=== PATIENT | male | born 1985 | race African-American/Black ===

== ENCOUNTER 2017-01-14 01:23 | Emergency (ER) | payer MEDICAID ==
[~2017-01-14] VITALS: Ht 188 cm; Wt 120.0 kg
[2017-01-14 06:42] VITALS: BP 131/82
[2017-01-14 07:07] LABS: CARBON DIOXIDE 26 mEq/L (21-32); CHLORIDE 101 mEq/L (98-107); TROPONIN I < 0.02 ng/mL (0.00-0.04)
== END 2017-01-14 07:50 | disposition left against medical advice (07) ==
LOC: ER 02:33
DX: R07.9 Chest pain, unspecified (principal); R05 Cough; F17.200 Nicotine dependence, unspecified, uncomplicated; F12.10 Cannabis abuse, uncomplicated; F15.10 Other stimulant abuse, uncomplicated; F11.10 Opioid abuse, uncomplicated
CPT/HCPCS: 36415; 71010; 80048; 84484; 85379; 93005; 99285; Z7610

== ENCOUNTER 2018-06-11 10:24 | Emergency (ER) | payer MEDICAID ==
[~2018-06-11] VITALS: Ht 182.9 cm; Wt 118.0 kg
[2018-06-11] MEDS ORDERED: SODIUM CHLORIDE 0.9% 1,000 ML IV ONE (11:09)
[2018-06-11] MEDS ORDERED: METHYLPREDNISOLONE SOD SUCC 125 MG/2 ML VIAL IV STA (11:09)
[2018-06-11] MEDS ORDERED: IPRATROPIUM/ALBUTEROL 0.5-3(2.5)MG/3ML NEB HHN ONE (11:15)
[2018-06-11] MEDS ORDERED: AZITHROMYCIN 500 MG TABLET PO ONE (11:15)
[2018-06-11 11:41] LABS: EOSINOPHILS % 0.7 % (0.0-5.0); HEMATOCRIT. 43.4 % (42.0-52.0); HEMOGLOBIN. 14.3 g/dL (14.0-18.0); MEAN CORPUSCULAR HEMOGLOBIN 29.2 pg (28.0-32.0); MEAN CORPUSCULAR VOLUME 88.4 fL (80.0-94.0); MEAN PLATELET VOLUME 8.3 fl (7.4-10.4); MONOCYTES % 8.3 % (2.0-8.0); PLATELET 288 x1000/uL (130-400); RED CELL DISTRIBUTION WIDTH 13.5 % (11.6-14.6)
[2018-06-11 11:48] LABS: CHLORIDE 110 mEq/L (98-107)
[2018-06-11 12:19] LABS: PARTIAL THROMBOPLASTIN TIME < 21.0 sec (23.4-31.0)
[2018-06-11] MEDS ORDERED: ACETAMINOPHEN 325MG TABLET PO ONE (13:30)
[2018-06-11 14:41] VITALS: BP 133/73
== END 2018-06-11 14:46 | disposition home or self-care (01) ==
LOC: ER 14:08
DX: J45.909 Unspecified asthma, uncomplicated (principal); R06.02 Shortness of breath
CPT/HCPCS: 36415; 71045; 80053; 83880; 84484; 85025; 85610; 85730; 87040; 93005; 94640; 96374; 99284; J2930; J7030; J7620

== ENCOUNTER 2018-08-11 02:27 | Emergency (ER) | payer MEDICAID ==
[~2018-08-11] VITALS: Ht 182.9 cm; Wt 124.3 kg
[2018-08-11] MEDS ORDERED: KETOROLAC 60MG/2ML VIAL IM ONE (05:00)
[2018-08-11 05:01] VITALS: BP 125/75
[2018-08-11] MEDS ORDERED: ALBUTEROL (0.083%) 2.5MG/3ML NEB HHN ONE (07:15)
[2018-08-11] MEDS ORDERED: HYDROCODONE/ACETAMINOPHEN 5/325MG TABLET PO ONE (08:15)
== END 2018-08-11 08:34 | disposition home or self-care (01) ==
LOC: ER 02:27
DX: M25.551 Pain in right hip (principal); R09.81 Nasal congestion; R06.2 Wheezing; R09.89 Other specified symptoms and signs involving the circulatory and respiratory systems; F14.10 Cocaine abuse, uncomplicated; F12.10 Cannabis abuse, uncomplicated; I10 Essential (primary) hypertension; Z98.890 Other specified postprocedural states
CPT/HCPCS: 71045; 73502; 94640; 96372; 99284; J1885; J7611; Z7610

== ENCOUNTER 2018-08-25 13:12 | Emergency (ER) | payer MEDICAID | END 2018-08-25 13:57 | disposition left against medical advice (07) | LOC: ER 13:12 | DX: R10.9 Unspecified abdominal pain (principal); Z53.21 Procedure and treatment not carried out due to patient leaving prior to being seen by health care provider ==

== ENCOUNTER 2018-08-29 07:53 | Emergency (ER) | payer MEDICAID ==
[~2018-08-29] VITALS: Ht 182.9 cm; Wt 102.0 kg
[2018-08-29 08:40] VITALS: BP 125/87
== END 2018-08-29 08:58 | disposition home or self-care (01) ==
LOC: ER 08:03
DX: G89.21 Chronic pain due to trauma (principal); R07.81 Pleurodynia; I10 Essential (primary) hypertension; F12.10 Cannabis abuse, uncomplicated; F14.10 Cocaine abuse, uncomplicated; Z87.828 Personal history of other (healed) physical injury and trauma
CPT/HCPCS: 99283

== ENCOUNTER 2018-09-05 21:24 | Emergency (ER) | payer MEDICAID ==
[~2018-09-05] VITALS: Ht 182.9 cm; Wt 91.0 kg
[2018-09-06 04:24] VITALS: BP 135/92
[2018-09-06] MEDS ORDERED: DIAZEPAM 2 MG TABLET PO ONE (05:15)
[2018-09-06 05:31] LABS: BASOPHILS % 0.6 % (0.0-2.0); EOSINOPHILS % 0.6 % (0.0-5.0); HEMATOCRIT. 46.3 % (42.0-52.0); HEMOGLOBIN. 15.3 g/dL (14.0-18.0); LYMPHOCYTES % 37.5 % (20.0-50.0); MEAN CORPUSCULAR HEMOGLOBIN 29.2 pg (28.0-32.0); MEAN CORPUSCULAR VOLUME 88.1 fL (80.0-94.0); NEUTROPHILS % 54.3 % (40.0-76.0); PLATELET 290 x1000/uL (130-400); RED BLOOD CELL COUNT 5.26 mill/uL (4.7-6.1); RED CELL DISTRIBUTION WIDTH 13.9 % (11.6-14.6)
[2018-09-06 05:39] LABS: CHLORIDE 104 mEq/L (98-107)
[2018-09-06 05:44] LABS: ETHANOL BLOOD < 10 mg/dL
[2018-09-06 06:29] LABS: *BARBITURATES SCREEN URINE NEGATIVE (NEGATIVE); *BENZODIAZEPINES SCREEN URINE NEGATIVE (NEGATIVE); *COCAINE SCREEN URINE NEGATIVE (NEGATIVE); METHADONE URINE SCREEN NEGATIVE (NEGATIVE); OPIATES URINE SCREEN NEGATIVE (NEGATIVE)
[2018-09-06 06:31] LABS: *AMPHETAMINES SCREEN URINE PRESUMTIVE POSITIVE (NEGATIVE); CANNABINOID URINE SCREEN NEGATIVE (NEGATIVE); PHENCYCLIDINE URINE SCREEN NEGATIVE (NEGATIVE)
== END 2018-09-06 06:32 | disposition home or self-care (01) ==
LOC: ER 21:24
DX: F41.0 Panic disorder [episodic paroxysmal anxiety] (principal); Z91.14 Patient's other noncompliance with medication regimen; E87.6 Hypokalemia; I10 Essential (primary) hypertension; F20.9 Schizophrenia, unspecified; F14.10 Cocaine abuse, uncomplicated; F12.90 Cannabis use, unspecified, uncomplicated; F17.210 Nicotine dependence, cigarettes, uncomplicated; Z71.6 Tobacco abuse counseling
CPT/HCPCS: 36415; 80053; 80305; 80307; 80320; 80329; 85025; 99284; 99406; Z7610; G0480

== ENCOUNTER 2018-10-03 23:22 | Emergency (ER) | payer MEDICAID ==
[~2018-10-03] VITALS: Ht 182.9 cm; Wt 121.0 kg
[2018-10-04] MEDS ORDERED: ASPIRIN 325MG EC TABLET PO ONE (01:45)
[2018-10-04 02:55] VITALS: BP 138/78
== END 2018-10-04 03:19 | disposition home or self-care (01) ==
LOC: ER 23:22
DX: F14.10 Cocaine abuse, uncomplicated (principal); R07.89 Other chest pain; F41.9 Anxiety disorder, unspecified; F31.9 Bipolar disorder, unspecified; I10 Essential (primary) hypertension; F20.9 Schizophrenia, unspecified; F12.10 Cannabis abuse, uncomplicated; F17.200 Nicotine dependence, unspecified, uncomplicated
CPT/HCPCS: 71045; 93005; 99283

== ENCOUNTER 2018-12-26 00:06 | Emergency (ER) | payer MEDICAID ==
[~2018-12-26] VITALS: Ht 182.9 cm; Wt 122.9 kg
[2018-12-26] MEDS ORDERED: ACETAMINOPHEN 500MG TABLET PO ONE (02:30)
[2018-12-26] MEDS ORDERED: IBUPROFEN 600MG TABLET PO ONE (02:30)
[2018-12-26 02:48] VITALS: BP 139/70
== END 2018-12-26 04:25 | disposition home or self-care (01) ==
LOC: ER 00:06
DX: M25.561 Pain in right knee (principal); Z76.0 Encounter for issue of repeat prescription; F41.9 Anxiety disorder, unspecified; I10 Essential (primary) hypertension; F20.9 Schizophrenia, unspecified; F17.210 Nicotine dependence, cigarettes, uncomplicated; F12.10 Cannabis abuse, uncomplicated; F14.10 Cocaine abuse, uncomplicated
CPT/HCPCS: 99283

== ENCOUNTER 2018-12-31 19:10 | Emergency (ER) | payer MEDICAID ==
[~2018-12-31] VITALS: Ht 188 cm; Wt 122.0 kg
[2018-12-31 20:15] VITALS: BP 122/83
[2018-12-31] MEDS ORDERED: IBUPROFEN 600MG TABLET PO ONE (22:45)
[2018-12-31] MEDS ORDERED: LORAZEPAM 1MG TABLET PO ONE (22:45)
== END 2019-01-01 01:04 | disposition home or self-care (01) ==
LOC: ER 19:26
DX: R51 Headache (principal); F19.939 Other psychoactive substance use, unspecified with withdrawal, unspecified; H53.149 Visual discomfort, unspecified; F41.9 Anxiety disorder, unspecified; F31.9 Bipolar disorder, unspecified; F20.9 Schizophrenia, unspecified; I10 Essential (primary) hypertension; F17.200 Nicotine dependence, unspecified, uncomplicated; Z98.890 Other specified postprocedural states
CPT/HCPCS: 99283

== ENCOUNTER 2019-01-22 17:26 | Emergency (ER) | payer MEDICAID ==
[~2019-01-22] VITALS: Ht 177.8 cm; Wt 93.0 kg
[2019-01-22] MEDS ORDERED: MORPHINE SULFATE 4 MG/ML CPJ (NOT FOR IM USE) IV STA (18:06)
[2019-01-22] MEDS ORDERED: ONDANSETRON HCL 4MG/2ML INJ IV STA (18:06)
[2019-01-22] MEDS ORDERED: SODIUM CHLORIDE 0.9% 1,000 ML IV ONE (18:06)
[2019-01-22] MEDS ORDERED: FAMOTIDINE 20MG/2ML VIAL IV STA (18:06)
[2019-01-22 18:47] LABS: BASOPHILS % 0.4 % (0.0-2.0); EOSINOPHILS % 8.8 % (0.0-5.0); HEMATOCRIT. 44.9 % (42.0-52.0); HEMOGLOBIN. 14.7 g/dL (14.0-18.0); LYMPHOCYTES % 25.4 % (20.0-50.0); MEAN CORPUSCULAR HEMOGLOBIN 29.1 pg (28.0-32.0); MEAN CORPUSCULAR VOLUME 88.7 fL (80.0-94.0); MEAN PLATELET VOLUME 8.5 fl (7.4-10.4); MONOCYTES % 7.3 % (2.0-8.0); NEUTROPHILS % 58.1 % (40.0-76.0); PLATELET 290 x1000/uL (130-400); RED BLOOD CELL COUNT 5.06 mill/uL (4.7-6.1); RED CELL DISTRIBUTION WIDTH 14.6 % (11.6-14.6)
[2019-01-22 18:51] LABS: CHLORIDE 108 mEq/L (98-107)
[2019-01-22 21:20] VITALS: BP 132/75
== END 2019-01-22 23:00 | disposition home or self-care (01) ==
LOC: ER 18:23
DX: K80.50 Calculus of bile duct without cholangitis or cholecystitis without obstruction (principal); R79.89 Other specified abnormal findings of blood chemistry; F31.9 Bipolar disorder, unspecified; I10 Essential (primary) hypertension; F41.9 Anxiety disorder, unspecified; F20.9 Schizophrenia, unspecified
CPT/HCPCS: 36415; 76705; 80053; 83690; 85025; 85610; 96361; 96374; 96375; 99284; J2270; J2405; J3490; J7030

== ENCOUNTER 2019-03-09 16:52 | Emergency (ER) | payer MEDICAID ==
[~2019-03-09] VITALS: Ht 180.3 cm; Wt 140.0 kg
[2019-03-09] MEDS ORDERED: LORAZEPAM 2MG/ML CPJ IV STA (17:23)
[2019-03-09] MEDS ORDERED: SODIUM CHLORIDE 0.9% 1,000 ML IV ONE (17:23)
[2019-03-09 17:39] LABS: BASOPHILS % 0.8 % (0.0-2.0); HEMATOCRIT. 44.3 % (42.0-52.0); HEMOGLOBIN. 14.9 g/dL (14.0-18.0); LYMPHOCYTES % 22.9 % (20.0-50.0); MEAN CORPUSCULAR HEMOGLOBIN 29.3 pg (28.0-32.0); MEAN CORPUSCULAR VOLUME 87.5 fL (80.0-94.0); MEAN PLATELET VOLUME 8.4 fl (7.4-10.4); MONOCYTES % 9.7 % (2.0-8.0); NEUTROPHILS % 60.6 % (40.0-76.0); PLATELET 296 x1000/uL (130-400); RED BLOOD CELL COUNT 5.07 mill/uL (4.7-6.1); RED CELL DISTRIBUTION WIDTH 13.9 % (11.6-14.6)
[2019-03-09 17:48] LABS: CHLORIDE 102 mEq/L (98-107)
[2019-03-09 17:56] LABS: ETHANOL BLOOD < 10 mg/dL
[2019-03-09] MEDS ORDERED: SORBITOL 70% SOLN 30ML PO ONE (19:45)
[2019-03-09] MEDS ORDERED: LORAZEPAM 1MG TABLET PO ONE (20:45)
[2019-03-09 22:37] LABS: CLARITY URINE CLEAR (CLEAR); COLOR URINE YELLOW (YELLOW); KETONES URINE TRACE (NEGATIVE); LEUKOCYTE ESTERASE URINE NEGATIVE (NEGATIVE); NITRITE URINE NEGATIVE (NEGATIVE); OCCULT BLOOD URINE NEGATIVE (NEGATIVE); PH URINE 6.5 (4.5-8.0); PROTEIN URINE 1+ (NEGATIVE); SPECIFIC GRAVITY URINE 1.037 (1.005-1.030)
[2019-03-09] MEDS ORDERED: LORAZEPAM 2MG/ML CPJ IV ONE (22:45)
[2019-03-09] MEDS ORDERED: QUETIAPINE FUMARATE 50MG TABLET PO PRN (22:45)
[2019-03-09 22:47] LABS: *AMPHETAMINES SCREEN URINE PRESUMTIVE POSITIVE (NEGATIVE); *BARBITURATES SCREEN URINE NEGATIVE (NEGATIVE); *BENZODIAZEPINES SCREEN URINE NEGATIVE (NEGATIVE)
[2019-03-09 22:48] LABS: *COCAINE SCREEN URINE NEGATIVE (NEGATIVE); CANNABINOID URINE SCREEN PRESUMTIVE POSITIVE (NEGATIVE); METHADONE URINE SCREEN NEGATIVE (NEGATIVE); OPIATES URINE SCREEN NEGATIVE (NEGATIVE); PHENCYCLIDINE URINE SCREEN NEGATIVE (NEGATIVE)
[2019-03-10 11:30] VITALS: BP 120/60
== END 2019-03-10 13:34 | disposition home or self-care (01) ==
LOC: ER 17:09
DX: R53.1 Weakness (principal); E86.0 Dehydration; K59.00 Constipation, unspecified; R45.851 Suicidal ideations; F17.290 Nicotine dependence, other tobacco product, uncomplicated; F12.10 Cannabis abuse, uncomplicated; F15.10 Other stimulant abuse, uncomplicated; F41.9 Anxiety disorder, unspecified; E11.9 Type 2 diabetes mellitus without complications; F20.9 Schizophrenia, unspecified; Z98.890 Other specified postprocedural states
CPT/HCPCS: 36415; 80053; 80305; 80307; 80320; 80329; 81003; 84443; 85025; 93005; 96374; 99284; 99406; J2060; J7030; Z7610; G0480

== ENCOUNTER 2019-05-06 23:20 | Emergency (ER) | payer MEDICAID ==
[~2019-05-06] VITALS: Ht 182.9 cm; Wt 127.0 kg
[2019-05-07 02:04] LABS: EOSINOPHILS % 7.5 % (0.0-5.0); HEMATOCRIT. 47.7 % (42.0-52.0); HEMOGLOBIN. 15.9 g/dL (14.0-18.0); LYMPHOCYTES % 32.5 % (20.0-50.0); MEAN CORPUSCULAR HEMOGLOBIN 29.4 pg (28.0-32.0); MONOCYTES % 6.8 % (2.0-8.0); NEUTROPHILS % 52.2 % (40.0-76.0); PLATELET 311 x1000/uL (130-400); RED BLOOD CELL COUNT 5.41 mill/uL (4.7-6.1); RED CELL DISTRIBUTION WIDTH 13.7 % (11.6-14.6)
[2019-05-07 02:12] LABS: CHLORIDE 105 mEq/L (98-107)
[2019-05-07 02:16] LABS: *AMPHETAMINES SCREEN URINE PRESUMTIVE POSITIVE (NEGATIVE); *BARBITURATES SCREEN URINE NEGATIVE (NEGATIVE); *BENZODIAZEPINES SCREEN URINE NEGATIVE (NEGATIVE); *COCAINE SCREEN URINE NEGATIVE (NEGATIVE)
[2019-05-07 02:17] LABS: CANNABINOID URINE SCREEN NEGATIVE (NEGATIVE); METHADONE URINE SCREEN NEGATIVE (NEGATIVE); OPIATES URINE SCREEN NEGATIVE (NEGATIVE); PHENCYCLIDINE URINE SCREEN NEGATIVE (NEGATIVE)
[2019-05-07 02:17] LABS: ETHANOL BLOOD < 10 mg/dL
[2019-05-07 15:15] VITALS: BP 118/71
== END 2019-05-07 15:20 | disposition home or self-care (01) ==
LOC: ER 23:20
DX: R44.0 Auditory hallucinations (principal); F20.9 Schizophrenia, unspecified; I49.9 Cardiac arrhythmia, unspecified
CPT/HCPCS: 36415; 80053; 80305; 80307; 80320; 80329; 85025; 93005; 99284; G0480

== ENCOUNTER 2019-05-14 16:49 | Emergency (ER) | payer MEDICAID ==
[~2019-05-14] VITALS: Ht 182.9 cm; Wt 118.0 kg
[2019-05-14 18:44] VITALS: BP 129/78
== END 2019-05-14 18:45 | disposition home or self-care (01) ==
LOC: ER 16:49
DX: F41.9 Anxiety disorder, unspecified (principal); G47.00 Insomnia, unspecified
CPT/HCPCS: 99282; 99283

== ENCOUNTER 2019-06-09 19:48 | Emergency (ER) | payer MEDICAID ==
[~2019-06-09] VITALS: Ht 182.9 cm; Wt 118.0 kg
[2019-06-09 22:45] VITALS: BP 130/79
[2019-06-09] MEDS ORDERED: LORAZEPAM 1MG TABLET PO ONE (22:45)
== END 2019-06-10 05:51 | disposition left against medical advice (07) ==
LOC: ER 19:50
DX: F10.20 Alcohol dependence, uncomplicated (principal); F41.9 Anxiety disorder, unspecified; F32.9 Major depressive disorder, single episode, unspecified; F43.10 Post-traumatic stress disorder, unspecified; F20.9 Schizophrenia, unspecified; Y90.9 Presence of alcohol in blood, level not specified
CPT/HCPCS: 99282

== ENCOUNTER 2019-06-15 06:47 | Emergency (ER) | payer MEDICAID ==
[~2019-06-15] VITALS: Ht 182.9 cm; Wt 123.0 kg
[2019-06-15 08:20] VITALS: BP 131/76
== END 2019-06-15 08:43 | disposition left against medical advice (07) ==
LOC: ER 06:47
DX: Z71.51 Drug abuse counseling and surveillance of drug abuser (principal); F41.9 Anxiety disorder, unspecified; F32.9 Major depressive disorder, single episode, unspecified; F20.9 Schizophrenia, unspecified
CPT/HCPCS: 99281

== ENCOUNTER 2019-06-25 21:37 | Emergency (ER) | payer MEDICAID ==
[~2019-06-25] VITALS: Ht 182.9 cm; Wt 120.0 kg
[2019-06-25] MEDS ORDERED: KETOROLAC 60MG/2ML VIAL IM ONE (23:30)
[2019-06-25 23:44] VITALS: BP 124/86
== END 2019-06-25 23:46 | disposition home or self-care (01) ==
LOC: ER 21:37
DX: M54.12 Radiculopathy, cervical region (principal); F41.9 Anxiety disorder, unspecified; F31.9 Bipolar disorder, unspecified; F20.9 Schizophrenia, unspecified
CPT/HCPCS: 96372; 99283; J1885

== ENCOUNTER 2019-06-26 18:04 | Emergency (ER) | payer MEDICAID ==
[~2019-06-26] VITALS: Ht 188 cm; Wt 116.0 kg
[2019-06-26 21:15] LABS: BASOPHILS % 0.6 % (0.0-2.0); CHLORIDE 106 mEq/L (98-107); EOSINOPHILS % 4.1 % (0.0-5.0); HEMOGLOBIN. 13.2 g/dL (14.0-18.0); LYMPHOCYTES % 30.7 % (20.0-50.0); MEAN CORPUSCULAR HEMOGLOBIN 29.5 pg (28.0-32.0); MEAN CORPUSCULAR VOLUME 87.6 fL (80.0-94.0); MEAN PLATELET VOLUME 7.6 fl (7.4-10.4); MONOCYTES % 10.1 % (2.0-8.0); NEUTROPHILS % 54.5 % (40.0-76.0); PLATELET 255 x1000/uL (130-400); RED BLOOD CELL COUNT 4.45 mill/uL (4.7-6.1); RED CELL DISTRIBUTION WIDTH 13.4 % (11.6-14.6)
[2019-06-26 21:20] LABS: ETHANOL BLOOD < 10 mg/dL
[2019-06-26 22:44] LABS: CLARITY URINE CLEAR (CLEAR); COLOR URINE YELLOW (YELLOW); KETONES URINE TRACE (NEGATIVE); LEUKOCYTE ESTERASE URINE NEGATIVE (NEGATIVE); NITRITE URINE NEGATIVE (NEGATIVE); OCCULT BLOOD URINE NEGATIVE (NEGATIVE); PROTEIN URINE NEGATIVE (NEGATIVE); SPECIFIC GRAVITY URINE 1.034 (1.005-1.030)
[2019-06-26 22:55] LABS: *AMPHETAMINES SCREEN URINE PRESUMTIVE POSITIVE (NEGATIVE); *BARBITURATES SCREEN URINE NEGATIVE (NEGATIVE); *BENZODIAZEPINES SCREEN URINE PRESUMTIVE POSITIVE (NEGATIVE); *COCAINE SCREEN URINE NEGATIVE (NEGATIVE)
[2019-06-26 22:56] LABS: CANNABINOID URINE SCREEN NEGATIVE (NEGATIVE); METHADONE URINE SCREEN NEGATIVE (NEGATIVE); OPIATES URINE SCREEN NEGATIVE (NEGATIVE); PHENCYCLIDINE URINE SCREEN NEGATIVE (NEGATIVE)
[2019-06-27] MEDS ORDERED: OLANZAPINE 5MG TABLET ODT PO ONE (01:00)
[2019-06-27] MEDS ORDERED: POTASSIUM CHLORIDE 20MEQ TABLET SR PO ONE (01:15)
[2019-06-27 11:46] VITALS: BP 120/70
== END 2019-06-27 12:09 | disposition home or self-care (01) ==
LOC: ER 18:04
DX: F23 Brief psychotic disorder (principal); E87.6 Hypokalemia; F31.9 Bipolar disorder, unspecified; F17.210 Nicotine dependence, cigarettes, uncomplicated; Z59.0 Homelessness; Z91.14 Patient's other noncompliance with medication regimen; Z71.6 Tobacco abuse counseling
CPT/HCPCS: 36415; 80053; 80305; 80307; 80320; 80329; 81003; 85025; 99285; 99406; G0480

== ENCOUNTER 2019-08-28 18:07 | Emergency (ER) | payer MEDICAID ==
[~2019-08-28] VITALS: Ht 182.9 cm; Wt 100.0 kg
[2019-08-28] MEDS ORDERED: IBUPROFEN 600MG TABLET PO STA (18:40)
[2019-08-28] MEDS ORDERED: ACETAMINOPHEN 325MG TABLET PO ONE (18:45)
[2019-08-28 19:05] LABS: BASOPHILS % 0.6 % (0.0-2.0); EOSINOPHILS % 3.8 % (0.0-5.0); HEMATOCRIT. 50.6 % (42.0-52.0); HEMOGLOBIN. 16.9 g/dL (14.0-18.0); MEAN CORPUSCULAR HEMOGLOBIN 29.5 pg (28.0-32.0); MEAN CORPUSCULAR VOLUME 88.5 fL (80.0-94.0); MEAN PLATELET VOLUME 7.9 fl (7.4-10.4); MONOCYTES % 6.1 % (2.0-8.0); NEUTROPHILS % 57.5 % (40.0-76.0); PLATELET 358 x1000/uL (130-400); RED BLOOD CELL COUNT 5.72 mill/uL (4.7-6.1); RED CELL DISTRIBUTION WIDTH 13.7 % (11.6-14.6)
[2019-08-28 19:14] LABS: CLARITY URINE CLEAR (CLEAR); COLOR URINE YELLOW (YELLOW); KETONES URINE TRACE (NEGATIVE); LEUKOCYTE ESTERASE URINE NEGATIVE (NEGATIVE); NITRITE URINE NEGATIVE (NEGATIVE); OCCULT BLOOD URINE NEGATIVE (NEGATIVE); PH URINE 5.5 (4.5-8.0); PROTEIN URINE NEGATIVE (NEGATIVE); SPECIFIC GRAVITY URINE 1.023 (1.005-1.030)
[2019-08-28 19:14] LABS: CHLORIDE 108 mEq/L (98-107)
[2019-08-28 19:20] LABS: ETHANOL BLOOD < 10 mg/dL
[2019-08-28 19:24] LABS: CREATINE KINASE 236 IU/L (39-308)
[2019-08-28 19:35] LABS: *AMPHETAMINES SCREEN URINE PRESUMTIVE POSITIVE (NEGATIVE); *BARBITURATES SCREEN URINE NEGATIVE (NEGATIVE); *BENZODIAZEPINES SCREEN URINE NEGATIVE (NEGATIVE)
[2019-08-28 19:36] LABS: *COCAINE SCREEN URINE NEGATIVE (NEGATIVE); CANNABINOID URINE SCREEN NEGATIVE (NEGATIVE)
[2019-08-28 19:37] LABS: METHADONE URINE SCREEN NEGATIVE (NEGATIVE)
[2019-08-28 19:38] LABS: PHENCYCLIDINE URINE SCREEN NEGATIVE (NEGATIVE)
[2019-08-28 19:40] LABS: OPIATES URINE SCREEN NEGATIVE (NEGATIVE)
[2019-08-28] MEDS ORDERED: HYDROCODONE/ACETAMINOPHEN 5/325MG TABLET PO ONE (21:15)
[2019-08-29] MEDS ORDERED: HYDROCODONE/ACETAMINOPHEN 5/325MG TABLET PO SCH (05:15)
[2019-08-29 13:47] VITALS: BP 127/80
== END 2019-08-29 15:22 | disposition home or self-care (01) ==
LOC: ER 18:07
DX: F19.10 Other psychoactive substance abuse, uncomplicated (principal); F29 Unspecified psychosis not due to a substance or known physiological condition; F31.9 Bipolar disorder, unspecified; F20.9 Schizophrenia, unspecified
CPT/HCPCS: 36415; 71045; 80053; 80305; 80307; 80320; 80329; 81003; 82550; 85025; 93005; 99285; G0480

== ENCOUNTER 2019-08-29 20:47 | Emergency (ER) | payer MEDICAID ==
[~2019-08-29] VITALS: Ht 188 cm; Wt 109.0 kg
[2019-08-29 23:35] VITALS: BP 126/89
== END 2019-08-29 23:37 | disposition home or self-care (01) ==
LOC: ER 20:47
DX: F32.9 Major depressive disorder, single episode, unspecified (principal); F41.9 Anxiety disorder, unspecified; F12.10 Cannabis abuse, uncomplicated; F15.10 Other stimulant abuse, uncomplicated; F19.10 Other psychoactive substance abuse, uncomplicated; Z98.890 Other specified postprocedural states; Z76.0 Encounter for issue of repeat prescription
CPT/HCPCS: 99283

== ENCOUNTER 2019-08-30 04:11 | Emergency (ER) | payer MEDICAID ==
[~2019-08-30] VITALS: Ht 182.9 cm; Wt 111.0 kg
[2019-08-30 04:20] VITALS: BP 131/71
[2019-08-30] MEDS ORDERED: LORAZEPAM 0.5MG TABLET PO ONE (04:30)
== END 2019-08-30 04:46 | disposition home or self-care (01) ==
LOC: ER 04:11
DX: F41.9 Anxiety disorder, unspecified (principal); F15.10 Other stimulant abuse, uncomplicated; F12.10 Cannabis abuse, uncomplicated
CPT/HCPCS: 99283

== ENCOUNTER 2019-08-30 22:58 | Emergency (ER) | payer MEDICAID ==
[~2019-08-30] VITALS: Ht 182.9 cm; Wt 100.0 kg
[2019-08-31 01:03] LABS: *AMPHETAMINES SCREEN URINE PRESUMTIVE POSITIVE (NEGATIVE); *BARBITURATES SCREEN URINE NEGATIVE (NEGATIVE)
[2019-08-31 01:04] LABS: *BENZODIAZEPINES SCREEN URINE NEGATIVE (NEGATIVE); *COCAINE SCREEN URINE NEGATIVE (NEGATIVE); METHADONE URINE SCREEN NEGATIVE (NEGATIVE); OPIATES URINE SCREEN NEGATIVE (NEGATIVE); PHENCYCLIDINE URINE SCREEN NEGATIVE (NEGATIVE)
[2019-08-31 01:05] LABS: CANNABINOID URINE SCREEN NEGATIVE (NEGATIVE)
[2019-08-31 01:22] LABS: BASOPHILS % 0.8 % (0.0-2.0); EOSINOPHILS % 4.3 % (0.0-5.0); HEMATOCRIT. 45.9 % (42.0-52.0); HEMOGLOBIN. 15.6 g/dL (14.0-18.0); MEAN CORPUSCULAR HEMOGLOBIN 29.9 pg (28.0-32.0); MEAN PLATELET VOLUME 7.8 fl (7.4-10.4); NEUTROPHILS % 48.9 % (40.0-76.0); PLATELET 269 x1000/uL (130-400); RED BLOOD CELL COUNT 5.21 mill/uL (4.7-6.1); RED CELL DISTRIBUTION WIDTH 13.7 % (11.6-14.6)
[2019-08-31 01:28] LABS: CHLORIDE 102 mEq/L (98-107)
[2019-08-31 01:32] LABS: ETHANOL BLOOD < 10 mg/dL
[2019-08-31] MEDS ORDERED: GABAPENTIN 300MG CAPSULE PO SCH (12:45)
[2019-08-31] MEDS ORDERED: FLUOXETINE HCL 20MG CAPSULE PO ONE (12:45)
[2019-08-31] MEDS ORDERED: BUPROPION HCL 150MG TABLET XL 24HR PO ONE (12:45)
[2019-08-31] MEDS ORDERED: GABAPENTIN 300MG CAPSULE PO ONE (12:45)
[2019-08-31] MEDS ORDERED: FLUOXETINE HCL 10 MG CAPSULE PO SCH (13:00)
[2019-08-31] MEDS ORDERED: BUPROPION HCL 150MG TABLET XL 24HR PO SCH (13:00)
[2019-08-31 14:00] VITALS: BP 136/78
== END 2019-08-31 14:20 | disposition home or self-care (01) ==
LOC: ER 22:58
DX: F15.10 Other stimulant abuse, uncomplicated (principal); F16.10 Hallucinogen abuse, uncomplicated; F41.9 Anxiety disorder, unspecified; F12.10 Cannabis abuse, uncomplicated; Z75.1 Person awaiting admission to adequate facility elsewhere
CPT/HCPCS: 36415; 80053; 80305; 80307; 80320; 80329; 85025; 93005; 99285; G0480

== ENCOUNTER 2019-09-12 17:30 | Emergency (ER) | payer MEDICAID ==
[~2019-09-12] VITALS: Ht 185.4 cm; Wt 99.0 kg
[2019-09-12 17:54] VITALS: BP 123/82
[2019-09-12] MEDS ORDERED: LORAZEPAM 1MG TABLET PO SCH (21:45)
== END 2019-09-13 05:30 | disposition home or self-care (01) ==
LOC: ER 17:30
DX: Z59.0 Homelessness (principal); F41.9 Anxiety disorder, unspecified
CPT/HCPCS: 99283

== ENCOUNTER 2019-09-13 06:33 | Emergency (ER) | payer MEDICAID ==
[~2019-09-13] VITALS: Ht 182.9 cm; Wt 111.0 kg
[2019-09-13 09:31] VITALS: BP 125/77
== END 2019-09-13 09:33 | disposition home or self-care (01) ==
LOC: ER 06:33
DX: Z00.00 Encounter for general adult medical examination without abnormal findings (principal); F41.9 Anxiety disorder, unspecified
CPT/HCPCS: 99281

== ENCOUNTER 2020-04-07 18:26 | Emergency (ER) | payer MEDICAID ==
[~2020-04-07] VITALS: Ht 182.9 cm; Wt 113.0 kg
[2020-04-07 18:46] VITALS: BP 142/85
[2020-04-07 23:42] LABS: CHLORIDE 107 mEq/L (98-107)
[2020-04-07 23:43] LABS: CHLORIDE 106 mEq/L (98-107)
[2020-04-07 23:48] LABS: ETHANOL BLOOD < 10 mg/dL
[2020-04-07 23:49] LABS: BASOPHILS % 0.6 % (0.0-2.0); EOSINOPHILS % 1.6 % (0.0-5.0); HEMATOCRIT. 44.4 % (42.0-52.0); MEAN CORPUSCULAR VOLUME 88.3 fL (80.0-94.0); NEUTROPHILS % 59.8 % (40.0-76.0); RED BLOOD CELL COUNT 5.02 mill/uL (4.7-6.1); RED CELL DISTRIBUTION WIDTH 14.1 % (11.6-14.6)
[2020-04-08 00:25] LABS: PLATELET 191 x1000/uL (130-400)
[2020-04-08 00:26] LABS: MEAN PLATELET VOLUME 8.9 fl (7.4-10.4)
== END 2020-04-08 05:02 | disposition left against medical advice (07) ==
LOC: ER 18:26
DX: F20.9 Schizophrenia, unspecified (principal); R00.0 Tachycardia, unspecified; R09.02 Hypoxemia; F15.10 Other stimulant abuse, uncomplicated; F12.10 Cannabis abuse, uncomplicated; F10.21 Alcohol dependence, in remission
CPT/HCPCS: 36415; 80048; 80053; 80307; 80320; 80329; 85025; 99283; G0480

== ENCOUNTER 2020-04-08 10:03 | Emergency (ER) | payer MEDICAID ==
[~2020-04-08] VITALS: Ht 182.9 cm; Wt 116.0 kg
[2020-04-08] MEDS ORDERED: DIAZEPAM 5 MG/ML 2ML CPJ IM ONE (10:30)
[2020-04-08 11:18] VITALS: BP 150/70
== END 2020-04-08 11:21 | disposition home or self-care (01) ==
LOC: ER 10:03
DX: F41.9 Anxiety disorder, unspecified (principal); F15.10 Other stimulant abuse, uncomplicated; F20.9 Schizophrenia, unspecified; F12.10 Cannabis abuse, uncomplicated; F10.21 Alcohol dependence, in remission; Z90.81 Acquired absence of spleen
CPT/HCPCS: 93005; 96372; 99283; J3360; Z7610

== ENCOUNTER 2020-08-05 06:24 | Emergency (ER) | payer MEDICAID ==
[~2020-08-05] VITALS: Ht 188 cm; Wt 113.0 kg
[2020-08-05 09:01] VITALS: BP 133/64
[2020-08-05] MEDS ORDERED: HYDROCORTISONE 1% OINT 28.35GM TOP SCH (09:15)
[2020-08-05] MEDS ORDERED: HYDR453.3 TP (10:03)
== END 2020-08-05 10:13 | disposition home or self-care (01) ==
LOC: ER 06:24
DX: L30.9 Dermatitis, unspecified (principal); F20.9 Schizophrenia, unspecified; F41.9 Anxiety disorder, unspecified; F12.10 Cannabis abuse, uncomplicated; F15.10 Other stimulant abuse, uncomplicated
CPT/HCPCS: 99282

== ENCOUNTER 2021-09-09 00:26 | Emergency (ER) | payer MEDICAID ==
[~2021-09-09] VITALS: Ht 193 cm; Wt 113.0 kg
[~2021-09-09 00:26] MED LIST: HYDR453.3 TP
[2021-09-09 03:53] LABS: CLARITY URINE CLEAR (CLEAR); COLOR URINE YELLOW (YELLOW); KETONES URINE TRACE (NEGATIVE); LEUKOCYTE ESTERASE URINE NEGATIVE (NEGATIVE); NITRITE URINE NEGATIVE (NEGATIVE); OCCULT BLOOD URINE NEGATIVE (NEGATIVE); PH URINE 6.5 (4.5-8.0); PROTEIN URINE TRACE (NEGATIVE)
[2021-09-09 03:58] LABS: BASOPHILS % 0.5 % (0.0-2.0); EOSINOPHILS % 0.5 % (0.0-5.0); HEMATOCRIT. 44.3 % (42.0-52.0); HEMOGLOBIN. 14.7 g/dL (14.0-18.0); LYMPHOCYTES % 23.2 % (20.0-50.0); MEAN CORPUSCULAR HEMOGLOBIN 28.8 pg (28.0-32.0); MEAN CORPUSCULAR VOLUME 86.5 fL (80.0-94.0); MEAN PLATELET VOLUME 8.3 fl (7.4-10.4); MONOCYTES % 8.7 % (2.0-8.0); NEUTROPHILS % 67.1 % (40.0-76.0); PLATELET 244 x1000/uL (130-400); RED BLOOD CELL COUNT 5.12 mill/uL (4.7-6.1); RED CELL DISTRIBUTION WIDTH 13.6 % (11.6-14.6)
[2021-09-09 04:02] LABS: CHLORIDE 103 mEq/L (98-107)
[2021-09-09 04:09] LABS: ETHANOL BLOOD < 10 mg/dL
[2021-09-09 04:43] LABS: *AMPHETAMINES SCREEN URINE PRESUMTIVE POSITIVE (NEGATIVE); *BARBITURATES SCREEN URINE NEGATIVE (NEGATIVE); *BENZODIAZEPINES SCREEN URINE NEGATIVE (NEGATIVE); *COCAINE SCREEN URINE NEGATIVE (NEGATIVE); CANNABINOID URINE SCREEN PRESUMTIVE POSITIVE (NEGATIVE); METHADONE URINE SCREEN NEGATIVE (NEGATIVE); OPIATES URINE SCREEN NEGATIVE (NEGATIVE); PHENCYCLIDINE URINE SCREEN NEGATIVE (NEGATIVE)
[2021-09-09] MEDS ORDERED: DIAZEPAM 2 MG TABLET PO ONE (08:00)
[2021-09-09] MEDS: RISPERIDONE 0.5MG TABLET PO SCH ×2 (21:00→21:47)
[2021-09-09] MEDS ORDERED: LORAZEPAM 1MG TABLET PO NR (21:30)
[2021-09-09] MEDS ORDERED: LORAZEPAM 1MG TABLET PO ONE (21:30)
[2021-09-09] MEDS: FLUOXETINE HCL 10 MG CAPSULE PO SCH (21:47)
[2021-09-09] MEDS ORDERED: POTASSIUM CHLORIDE 20MEQ TABLET SR PO ONE (22:45)
[2021-09-10] MEDS: RISPERIDONE 0.5MG TABLET PO SCH (08:29)
[2021-09-10] MEDS: FLUOXETINE HCL 10 MG CAPSULE PO SCH (08:29)
[2021-09-10 15:59] VITALS: BP 118/67
== END 2021-09-10 16:09 ==
LOC: ER 00:28
DX: R45.851 Suicidal ideations (principal); R44.0 Auditory hallucinations; F32.9 Major depressive disorder, single episode, unspecified; F19.10 Other psychoactive substance abuse, uncomplicated; F41.9 Anxiety disorder, unspecified; J40 Bronchitis, not specified as acute or chronic; Z20.822 Contact with and (suspected) exposure to COVID-19
CPT/HCPCS: 36415; 80053; 80305; 80307; 80320; 80329; 81003; 85025; 87426; 99285; C9803; U0003; U0005; G0480